=== PATIENT | male | born 1935 | race African-American/Black ===

== ENCOUNTER 2017-03-16 00:11 | Emergency (ER) | payer MEDICARE ==
[~2017-03-16] VITALS: Ht 182.9 cm; Wt 69.9 kg
[2017-03-16] MEDS ORDERED: Sodium Chloride 500ML 500 ML IV ONE (01:08)
[2017-03-16 01:26] LABS: BASOPHILS % (AUTO) 0.7 % (0.0-2.0); EOSINOPHILS % (AUTO) 3.2 % (0.0-3.0); HEMATOCRIT 38.5 % (42.0-52.0); HEMOGLOBIN 12.8 G/DL (14.2-18.0); LYMPHOCYTES % (AUTO) 35.5 % (20.0-45.0); MEAN CORPUSCULAR VOLUME 106 FL (80-99); MONOCYTES % (AUTO) 9.7 % (1.0-10.0); NEUTROPHILS % (AUTO) 50.9 % (45.0-75.0); PLATELET COUNT 110 K/UL (150-450); RED BLOOD COUNT 3.63 M/UL (4.70-6.10); RED CELL DISTRIBUTION WIDTH 12.3 % (11.6-14.8)
[2017-03-16 01:43] LABS: ANION GAP 9 mmol/L (5-15); BLOOD UREA NITROGEN 27 mg/dL (7-18); CALCIUM 7.9 MG/DL (8.5-10.1); CARBON DIOXIDE 27 MMOL/L (21-32); CHLORIDE 105 MMOL/L (98-107); CREATININE 1.3 MG/DL (0.55-1.30); POTASSIUM 4.7 MMOL/L (3.5-5.1); SODIUM 140 MMOL/L (136-145)
[2017-03-16 01:48] LABS: ALANINE AMINOTRANSFERASE 20 U/L (12-78); ALBUMIN 3.2 G/DL (3.4-5.0); ALBUMIN/GLOBULIN RATIO 0.8 (1.0-2.7); ALKALINE PHOSPHATASE 51 U/L (46-116); ASPARTATE AMINO TRANSFERASE 19 U/L (15-37); BILIRUBIN,TOTAL 0.2 MG/DL (0.2-1.0)
[2017-03-16] MEDS ORDERED: Valproate Sodium INJ 500 MG in NS 55 ML IV ONE (02:00)
[2017-03-16 03:38] VITALS: BP 169/96
[2017-03-16 03:40] VITALS: BP 169/96
--- NOTE | 2017-03-16 04:00 | Emergency Room Report ---
History of Present Illness General Chief Complaint: Seizure Source: Family Member Present Illness HPI 81-year-old male presents to ED status post seizure. Daughter at bedside states that she witnessed a seizure patient was on the couch when he had a seizure. Last several seconds. No head injury. No tongue injury. No bowel or bladder incontinence. Patient has a history of seizures and takes Depakote. States patient used to take Depakote twice a day and is now on Depakote extended release. Patient states he feels fine. Denies any headaches. Denies any chest pain or shortness of breath. No other aggravating relieving factors. Denies any other associated symptoms Allergies: Coded Allergies: No Known Allergies (Unverified , 07/14/14) Patient History Past Medical History: HTN, dementia, seizures, other - prostate ca Past Surgical History: pacemaker Pertinent Family History: none Social History: Denies: smoking, alcohol use, drug use Immunizations: UTD Reviewed Nursing Documentation: PMH: Agreed, PSxH: Agreed Nursing Documentation-PMH Past Medical History: No History, Except For Hx Hypertension: Yes Hx Pacemaker: Yes Hx Cancer: Yes - Prostate Hx Neurological Problems: Yes - Dementia Hx Seizures: Yes Review of Systems All Other Systems: negative except mentioned in HPI Physical Exam Vital Signs Date Time Temp Pulse Resp B/P (MAP) Pulse Ox O2 Delivery O2 Flow Rate FiO2 03/15/17 23:53 98.1 60 16 179/82 98 Room Air Sp02 EP Interpretation: reviewed, normal General Appearance: no apparent distress, alert, GCS 15, non-toxic Head: normocephalic, atraumatic Eyes: bilateral eye normal inspection, bilateral eye PERRL ENT: hearing grossly normal, normal pharynx, no angioedema, normal voice Neck: full range of motion, supple/symm/no masses Respiratory: chest non-tender, lungs clear, normal breath sounds, speaking full sentences Cardiovascular #1: regular rate, rhythm, no edema Cardiovascular #2: 2+ carotid (R), 2+ carotid (L), 2+ radial (R), 2+ radial (L) , 2+ dorsalis pedis (R), 2+ dorsalis pedis (L) Gastrointestinal: normal bowel sounds, non tender, soft, non-distended, no guarding, no rebound Rectal: deferred Genitourinary: normal inspection, no CVA tenderness Musculoskeletal: back normal, gait/station normal, normal range of motion, non- tender Neurologic: alert, oriented x3, responsive, motor strength/tone normal, sensory intact, speech normal Psychiatric: judgement/insight normal, memory normal, mood/affect normal, no suicidal/homicidal ideation Reflexes: 3+ bicep (R), 3+ bicep (L), 3+ tricep (R), 3+ tricep (L), 3+ knee (R) , 3+ knee (L) Skin: normal color, no rash, warm/dry, well hydrated Lymphatic: no adenopathy Medical Decision Making Diagnostic Impression: Primary Impression: Seizure disorder ER Course Hospital Course 81-year-old M presents to ED status post seizure Differential diagnosis includes- breakthrough seizure, alcohol abuse, noncompliance with medication Clinical course Patient placed on stretcher. Initial history and physical I ordered labs, IV fluids, EKG Labs-electrolytes okay, no leukocytosis, hemoglobin/hematocrit stable. depakote level subtherapeutic EKG - NSR, no acute ischemic changes interpreted by me Patient given loading dose of Depakote Patient allowed to rest is now awake alert oriented x3. ambulating without difficulty. Family is at bedside and can take patient home. Diagnosis - seizure disorder stable and discharged to home. Followup with PMD. Return to ED if symptoms recur or worsen Labs Test 03/16/17 00:20 White Blood Count 7.0 K/UL (4.8-10.8) Red Blood Count 3.63 M/UL (4.70-6.10) Hemoglobin 12.8 G/DL (14.2-18.0) Hematocrit 38.5 % (42.0-52.0) Mean Corpuscular Volume 106 FL (80-99) Mean Corpuscular Hemoglobin 35.2 PG (27.0-31.0) Mean Corpuscular Hemoglobin Concent 33.1 G/DL (32.0-36.0) Red Cell Distribution Width 12.3 % (11.6-14.8) Platelet Count 110 K/UL (150-450) Mean Platelet Volume 8.8 FL (6.5-10.1) Neutrophils (%) (Auto) 50.9 % (45.0-75.0) Lymphocytes (%) (Auto) 35.5 % (20.0-45.0) Monocytes (%) (Auto) 9.7 % (1.0-10.0) Eosinophils (%) (Auto) 3.2 % (0.0-3.0) Basophils (%) (Auto) 0.7 % (0.0-2.0) Sodium Level 140 MMOL/L (136-145) Potassium Level 4.7 MMOL/L (3.5-5.1) Chloride Level 105 MMOL/L (98-107) Carbon Dioxide Level 27 MMOL/L (21-32) Anion Gap 9 mmol/L (5-15) Blood Urea Nitrogen 27 mg/dL (7-18) Creatinine 1.3 MG/DL (0.55-1.30) Estimat Glomerular Filtration Rate mL/min (>60) Glucose Level 109 MG/DL (74-106) Calcium Level 7.9 MG/DL (8.5-10.1) Total Bilirubin 0.2 MG/DL (0.2-1.0) Aspartate Amino Transf (AST/SGOT) 19 U/L (15-37) Alanine Aminotransferase (ALT/SGPT) 20 U/L (12-78) Alkaline Phosphatase 51 U/L (46-116) Total Protein 7.1 G/DL (6.4-8.2) Albumin 3.2 G/DL (3.4-5.0) Globulin 3.9 g/dL Albumin/Globulin Ratio 0.8 (1.0-2.7) Acetaminophen Level < 2 MCG/ML (10-30) Valproic Acid (Depakene) Level 13 MCG/ML (50-100) Serum Alcohol < 3 mg/dL EKG Diagnostic Results Rate: normal Rhythm: NSR ST Segments: no acute changes ASA given to the pt in ED: No Rhythm Strip Diag. Results EP Interpretation: yes Rhythm: NSR, no PVC's, no ectopy Last Vital Signs Date Time Temp Pulse Resp B/P (MAP) Pulse Ox O2 Delivery O2 Flow Rate FiO2 03/16/17 03:40 98.1 62 16 169/96 98 Room Air Status: improved Disposition: HOME, SELF-CARE Condition: Stable Referrals: LAM VARGAS (PCP) Patient Instructions: Seizure, Adult JENNI CARRILLO M.D. Mar 16, 2017 04:00
--- NOTE | 2017-03-16 17:05 | Cardiology Report ---
APPROVED REPORT EKG Measurement Heart [id number] Abnormal ECG atrial paced ventricular sensed
== END 2017-03-16 03:40 | disposition home or self-care (01) ==
LOC: EDBD 00:11 → EMR 00:28
DX: G40.909 Epilepsy, unspecified, not intractable, without status epilepticus (principal); I10 Essential (primary) hypertension; F03.90 Unspecified dementia, unspecified severity, without behavioral disturbance, psychotic disturbance, mood disturbance, and anxiety; Z85.46 Personal history of malignant neoplasm of prostate; Z95.0 Presence of cardiac pacemaker
CPT/HCPCS: 36415; 80053; 80164; 85025; 93005; 96361; 96365; 99284; G0480; 80329

== ENCOUNTER 2020-01-17 15:24 | Emergency (ER) | payer MEDICARE ==
[~2020-01-17] VITALS: Ht 182.9 cm; Wt 68.0 kg
[2020-01-17 15:48] VITALS: BP 95/62
--- NOTE | 2020-01-17 15:48 | NUR ---
ED Nurse Note: patient from home and accompanied by his daughter due to rapid heart beat and CP. Per daughter, patient has not been eating well x 3 weeks. Patient is AAO x2, unable to ambulate recently, Pt is SOB at rest. Noted patient to appear weak and lethargic. Daughter at the bed side.
--- NOTE | 2020-01-17 16:05 | NUR ---
ED Nurse Note: Collected blood specimen then sent.
--- NOTE | 2020-01-17 16:28 | Emergency Room Report ---
History of Present Illness General Chief Complaint: Generalized Weakness Source: Family Member Present Illness HPI Disclaimer: Please note that this report is being documented using [employer] technology. This can lead to erroneous entry secondary to incorrect interpretation by the dictating instrument. HPI: 84-year-old male presents from primary physician's office due to shortness of breath and deconditioning. Presents with daughter. According to the daughter patient has gradually worsening generalized weakness worsening confusion and shortness of breath over the past few weeks. He has a history of dementia, pacemaker, hypertension, BPH. She denies any recent trauma. Patient has no medical complaints but is confused. Speaking with the daughter she does wish him to be DNR with comfort measures. Allergies: Coded Allergies: No Known Allergies (Unverified , 07/14/14) COVID-19 Screening Contact w/high risk pt: No Experienced COVID-19 symptoms?: No COVID-19 Testing performed ADULT CARE PROVIDER: No Patient History Reviewed Nursing Documentation: PMH: Agreed; PSxH: Agreed Nursing Documentation-PMH Past Medical History: No History, Except For Hx Hypertension: Yes Hx Pacemaker: Yes Hx Cancer: Yes - Prostate Hx Neurological Problems: Yes - Dementia Hx Seizures: Yes Review of Systems All Other Systems: negative except mentioned in HPI Physical Exam Vital Signs Date Time Temp Pulse Resp B/P (MAP) Pulse Ox O2 Delivery O2 Flow Rate FiO2 01/17/20 15:38 97.2 122 24 95/62 (73) 99 Room Air Sp02 EP Interpretation: reviewed, normal General Appearance: no apparent distress, other - Elderly-appearing Head: normocephalic, atraumatic Eyes: bilateral eye PERRL, bilateral eye EOMI ENT: hearing grossly normal, moist mucus membranes Neck: full range of motion, supple Respiratory: lungs clear, normal breath sounds, no rhonchi, no respiratory distress, no retraction, no wheezing Cardiovascular #1: normal peripheral pulses, no murmur, tachycardia Gastrointestinal: non tender, soft, non-distended, no guarding Neurologic: alert, no focal defects, other - Not oriented to name place or situation Skin: normal color, warm/dry Medical Decision Making Diagnostic Impression: Primary Impression: CHF (congestive heart failure) Additional Impressions: Pleural effusion, left Failure to thrive ER Course MDM: Differential diagnosis included but not limited to CHF, deconditioning, dehydration, worsening dementia, arrhythmia, electrolyte disturbance to name a few Clinical course-IV inserted patient given small IV fluid bolus. BNP was sebas vated. Troponin negative. EKG showed a paced rhythm. Patient will require admission to the hospital. I spoke with Dr. Collado who will accept patient at [facility]. I did speak with the daughter and we did make patient a DNR with comfort measures only and POLST was signed by her and myself in the ER. I do suspect patient's worsening dementia is leading to his cognitive decline and failure to thrive. Labs - Laboratory Tests Test 01/17/20 16:00 01/17/20 17:00 White Blood Count 5.2 K/UL (4.8-10.8) Red Blood Count 3.70 M/UL (4.70-6.10) L Hemoglobin 13.3 G/DL (14.2-18.0) L Hematocrit 41.0 % (42.0-52.0) L Mean Corpuscular Volume 111 FL (80-99) H Mean Corpuscular Hemoglobin 36.0 PG (27.0-31.0) H Mean Corpuscular Hemoglobin Concent 32.5 G/DL (32.0-36.0) Red Cell Distribution Width 16.0 % (11.6-14.8) H Platelet Count 64 K/UL (150-450) L Mean Platelet Volume 10.5 FL (6.5-10.1) H Neutrophils (%) (Auto) % (45.0-75.0) Lymphocytes (%) (Auto) % (20.0-45.0) Monocytes (%) (Auto) % (1.0-10.0) Eosinophils (%) (Auto) % (0.0-3.0) Basophils (%) (Auto) % (0.0-2.0) Differential Total Cells Counted 100 Neutrophils % (Manual) 58 % (45-75) Lymphocytes % (Manual) 25 % (20-45) Monocytes % (Manual) 16 % (1-10) H Eosinophils % (Manual) 0 % (0-3) Basophils % (Manual) 1 % (0-2) Band Neutrophils 0 % (0-8) Platelet Estimate Decreased L Platelet Morphology Normal Polychromasia 1+ Anisocytosis 1+ Macrocytosis 3+ Prothrombin Time 13.4 SEC (9.30-11.50) H Prothrombin Time INR 1.2 (0.9-1.1) H Activated Partial Thromboplast Time 31 SEC (23-33) Sodium Level 144 MMOL/L (136-145) Potassium Level 3.3 MMOL/L (3.5-5.1) L Chloride Level 105 MMOL/L (98-107) Carbon Dioxide Level 27 MMOL/L (21-32) Anion Gap 12 mmol/L (5-15) Blood Urea Nitrogen 26 mg/dL (7-18) H Creatinine 2.1 MG/DL (0.55-1.30) H Estimated Glomerular Filtration Rate 36.5 mL/min (>60) Glucose Level 174 MG/DL (74-106) H Calcium Level 8.8 MG/DL (8.5-10.1) Total Bilirubin 0.7 MG/DL (0.2-1.0) Aspartate Amino Transferase (AST) 22 U/L (15-37) Alanine Aminotransferase (ALT) 12 U/L (12-78) Alkaline Phosphatase 56 U/L (46-116) Troponin I 0.022 ng/mL (0.000-0.056) Pro-B-Type Natriuretic Peptide 35291 pg/mL (0-125) H Total Protein 7.4 G/DL (6.4-8.2) Albumin 3.0 G/DL (3.4-5.0) L Globulin 4.4 g/dL Albumin/Globulin Ratio 0.7 (1.0-2.7) L Urine Color Yellow Urine Appearance Clear Urine pH 5 (4.5-8.0) Urine Specific [place] 1.015 (1.005-1.035) Urine Protein Negative (NEGATIVE) Urine Glucose (UA) Negative (NEGATIVE) Urine Ketones 1+ (NEGATIVE) H Urine Blood 3+ (NEGATIVE) H Urine Nitrite Negative (NEGATIVE) Urine Bilirubin Negative (NEGATIVE) Urine Urobilinogen 1 MG/DL (0.0-1.0) H Urine Leukocyte Esterase Negative (NEGATIVE) Urine RBC Pending Urine WBC Pending Urine Squamous Epithelial Cells Pending Urine Bacteria Pending Microbiology Date/Time Source Procedure Growth Status 01/17/20 17:12 Nasopharynx SARS-CoV-2 RdRp Gene Assay - Final Complete EKG Diagnostic Results Other Impression Ventricular paced rhythm, rate of 122, abnormal EKG Chest X-Ray Diagnostic Results Chest X-Ray Diagnostic Results : # of Views/Limited/Complete: 1 View Indication: Shortness of Breath EP Interpretation: Yes Interpretation: other - Left pleural effusion, cardiomegaly, pacemaker present Electronically Signed by: Cole Tabares MD Last Vital Signs Date Time Temp Pulse Resp B/P (MAP) Pulse Ox O2 Delivery O2 Flow Rate FiO2 01/17/20 15:48 97.2 122 24 95/62 99 Room Air Disposition: SHORT-TERM HOSP Condition: Serious Referrals: NON PHYSICIAN (PCP) Cole Tabares M.D. Jan 17, 2020 16:28
[2020-01-17 16:52] LABS: HEMOGLOBIN 13.3 G/DL (14.2-18.0); MEAN CORPUSCULAR VOLUME 111 FL (80-99); PLATELET COUNT 64 K/UL (150-450); WHITE BLOOD COUNT 5.2 K/UL (4.8-10.8)
[2020-01-17 16:54] LABS: CALCIUM 8.8 MG/DL (8.5-10.1); CREATININE 2.1 MG/DL (0.55-1.30); POTASSIUM 3.3 MMOL/L (3.5-5.1)
[2020-01-17 16:57] LABS: INR 1.2 (0.9-1.1)
[2020-01-17 17:05] LABS: ALBUMIN/GLOBULIN RATIO 0.7 (1.0-2.7); BILIRUBIN,TOTAL 0.7 MG/DL (0.2-1.0)
[2020-01-17 17:43] LABS: APPEARANCE,URINE CLEAR; BILIRUBIN, URINE NEGATIVE (NEGATIVE); GLUCOSE, URINE (UA) NEGATIVE (NEGATIVE); KETONES,URINE 1+ (NEGATIVE); LEUKOCYTE ESTERASE ,URINE NEGATIVE (NEGATIVE); NITRITE,URINE NEGATIVE (NEGATIVE); PH,URINE 5 (4.5-8.0); PROTEIN,URINE NEGATIVE (NEGATIVE); UROBILINOGEN,URINE 1 MG/DL (0.0-1.0)
[2020-01-17 17:47] LABS: COLOR,URINE YELLOW
[2020-01-17 19:00] VITALS: BP 101/83
--- NOTE | 2020-01-17 19:18 | NUR ---
ED Nurse Note: received report from Magaly HOOD. Pt in bed and sleeping. ashley workman.
--- NOTE | 2020-01-17 20:27 | Diagnostic Imaging Report ---
Indication: Shortness of breath Technique: One view of the chest Comparison: none Findings: The heart is enlarged. There is a left chest pacemaker. There is pleural fluid on the left. There is bilateral basilar hazy infiltrate versus edema. Impression: Cardiomegaly Pleural effusion Bilateral basilar hazy infiltrate versus edema
[2020-01-17 21:12] VITALS: BP 114/89
--- NOTE | 2020-01-17 21:13 | NUR ---
ED Nurse Note: pt v-tach on monitor with v pacer. ermd aware of vtach on monitor. will continue to monitor patient
[2020-01-18] MEDS ORDERED: Labetalol 5mg/ml 20ml vial IV ONE (00:45)
--- NOTE | 2020-01-18 00:51 | NUR ---
ED Nurse Note: gave report to Nabeel at [facility]
[2020-01-18 00:55] VITALS: BP 103/62
--- NOTE | 2020-01-18 00:55 | NUR ---
TRANSFER TO [facility] Patient transferred to [facility] via [facility] . Report given to Jc HOOD. Belongings sent with patient
== END 2020-01-18 00:55 | disposition short-term general hospital (02) ==
LOC: EMR 15:57
DX: I50.9 Heart failure, unspecified (principal); J90 Pleural effusion, not elsewhere classified; R62.7 Adult failure to thrive; F03.90 Unspecified dementia, unspecified severity, without behavioral disturbance, psychotic disturbance, mood disturbance, and anxiety; I10 Essential (primary) hypertension; N40.0 Benign prostatic hyperplasia without lower urinary tract symptoms; G40.909 Epilepsy, unspecified, not intractable, without status epilepticus; Z95.0 Presence of cardiac pacemaker; Z68.20 Body mass index [BMI] 20.0-20.9, adult; Z85.46 Personal history of malignant neoplasm of prostate
CPT/HCPCS: 36415; 71045; 80053; 81003; 83880; 84484; 85007; 85025; 85610; 85730; 93005; 96361; 96374; 96375; 99284; J1940; J7030; U0002